=== PATIENT | female | born 1995 | race Hispanic/Latino ===

== ENCOUNTER 2017-09-11 11:51 | Inpatient (IN) | payer SELFPAY ==
[2017-09-11] VITALS (31 sets, daily range): BP systolic 98–137; BP diastolic 59–114
[~2017-09-11] VITALS: Ht 144.8 cm; Wt 52.2 kg
[2017-09-11] MEDS ORDERED: SODIUM CHLORIDE 0.9% 1000ML 1,000 ML IV STA (11:56)
[2017-09-11] MEDS ORDERED: SODIUM BICARBONATE 8.4% SYRING 100 ML ONE ×2 (12:19→22:06)
[2017-09-11] MEDS ORDERED: SODIUM BICARBONATE 8.4% INJ 50 ML SYR IV STA ×2 (12:19→14:18)
[2017-09-11 12:20] LABS: BASOPHILS # (AUTO) 0.1 (0.0-0.1); BASOPHILS % 0.2 % (0.0-1.0); EOSINOPHILS # (AUTO) 0.1 (0.0-0.4); EOSINOPHILS % 0.1 % (0.0-6.0); HEMATOCRIT 43.7 % (34.2-44.1); HEMOGLOBIN 14.5 g/dL (12.0-16.0); LYMPHOCYTES # (AUTO) 3.5 (1.0-3.2); LYMPHOCYTES % 8.4 % (18.0-39.1); MEAN CORPUSCULAR HEMOGLOBIN 30.9 pg (28-32); MEAN CORPUSCULAR HGB CONC 33.2 g/dL (31-35); MONOCYTES # (AUTO) 2.3 (0.2-0.8); MONOCYTES % 5.6 % (4.4-11.3); NEUTROPHILS # (AUTO) 33.3 (2.1-6.9); NEUTROPHILS % 79.9 % (38.7-80.0); PLATELET COUNT 415 x10e3/uL (140-360); RED CELL DISTRIBUTION WIDTH 14.4 % (11.7-14.4)
[2017-09-11 12:23] LABS: ABG HCO3 2 mmol/L (23-28); ABG PCO2 10 mmHg (41-51); ABG PH 6.84 (7.31-7.41); ABG PO2 162 mmHg (80-105)
[2017-09-11 12:31] LABS: INR 1.25; PARTIAL THROMBOPLASTIN TIME 36.5 seconds (23.8-35.5); PROTHROMBIN TIME 14.8 seconds (11.9-14.5)
[2017-09-11 12:42] LABS: ALANINE AMINOTRANSFERASE 24 IU/L (0-55); ALBUMIN/GLOBULIN RATIO 0.6 (0.8-2.0); ALKALINE PHOSPHATASE 246 IU/L (40-150); BLOOD UREA NITROGEN 19 mg/dL (7-26); BUN/CREATININE RATIO 11 (6-25); CALCIUM 10.2 mg/dL (8.4-10.2); CHLORIDE 104 mmol/L (98-107); CREATININE, SERUM 1.66 mg/dL (0.57-1.11); EST GLOMERULAR FILTRATION RATE 39 ML/MIN (60-); POTASSIUM 3.9 mmol/L (3.5-5.1); SODIUM 131 mmol/L (136-145)
[2017-09-11 12:45] LABS: ANION GAP 25.9 mmol/L (8-16)
[2017-09-11 12:46] LABS: CARBON DIOXIDE < 5 mmol/L (22-29); GLUCOSE 715 mg/dL (74-118)
[2017-09-11 12:51] LABS: BAND NEUTROPHILS % (MANUAL) 2 %; LYMPHOCYTES % (MANUAL) 6 % (19-48); MONOCYTES % (MANUAL) 5 % (3.4-9.0); NEUTROPHILS % (MANUAL) 83 % (40-74); NUCLEATED RED BLOOD CELLS 2; PROMYELOCYTES % (MANUAL) 2 % (0-0)
[2017-09-11 12:52] LABS: ANISOCYTOSIS SLIG; BURR CELLS SLIGHT; POIKILOCYTOSIS SLIGHT; POLYCHROMASIA FEW; TARGET CELLS FEW
[2017-09-11 12:53] LABS: PLATELET ESTIMATE ADEQUATE; PLATELET MORPHOLOGY COMMENT NORMAL; RBC MORPHOLOGY COMMENT NORMAL
[2017-09-11] MEDS ORDERED: SODIUM CHLORIDE 0.9% 1000ML 1,000 ML ONE (12:55)
[2017-09-11 13:01] LABS: CLARITY,URINE HAZY (CLEAR); COLOR,URINE COLORLESS (YELLOW); KETONES,URINE 2+ (NEGATIVE); LEUKOCYTE ESTERASE ,URINE NEGATIVE (NEGATIVE); NITRITE,URINE NEGATIVE (NEGATIVE); PROTEIN,URINE DIPSTICK 2+ (NEGATIVE); URINE UROBILINOGEN 0.2 mg/dL (0.2 - 1)
[2017-09-11 13:02] LABS: CREATINE KINASE 40 IU/L (29-168)
[2017-09-11 13:02] LABS: BILIRUBIN,URINE NEGATIVE (NEGATIVE)
[2017-09-11 13:03] LABS: AMPHETAMINES SCREEN,URINE NEGATIVE (NEGATIVE); BENZODIAZEPINES SCREEN,URINE NEGATIVE (NEGATIVE); PHENCYCLIDINE SCREEN,URINE NEGATIVE (NEGATIVE)
[2017-09-11 13:04] LABS: PREGNANCY TEST, URINE NEGATIVE (NEGATIVE)
[2017-09-11 13:12] LABS: BACTERIA,URINE MANY /HPF; EPITHELIAL CELLS,URINE FEW /LPF; WBC,URINE (MAN) 0-5 /HPF (0-5)
[2017-09-11] MEDS ORDERED: SODIUM CHLORIDE 0.9% 1000ML 1,000 ML IV SCH ×2 (13:30→23:30)
[2017-09-11] MEDS ORDERED: INSULIN REGULAR, HUMAN 3ML VL 100 UNIT in SODIUM CHLORIDE 0.9% 100 ML 100 ML IV STA ×2 (13:53)
[2017-09-11] MEDS: CEFTRIAXONE SOD 1 GM VIAL IV SCH (14:26)
[2017-09-11] MEDS ORDERED: INSULIN REGULAR, HUMAN 100 UNIT/1 ML 3ML VIAL IV ONE (14:30)
[2017-09-11 14:50] LABS: ABG HCO3 3 mmol/L (23-28); ABG PCO2 12 mmHg (41-51); ABG PH 6.91 (7.31-7.41); ABG PO2 90 mmHg (80-105)
[2017-09-11] MEDS ORDERED: DEXTROSE 5%/0.45% SOD CHL 1,000 ML IV SCH (15:21)
[2017-09-11] MEDS: SODIUM CHLORIDE 0.9% 1000ML 1,000 ML IV SCH ×4 (15:21→23:07)
[2017-09-11] MEDS ORDERED: INSULIN REGULAR IV SCH ×2 (15:30)
[2017-09-11] MEDS ORDERED: POTASSIUM CHLORIDE 20MEQ/100ML 200 ML IV PRN (15:30)
[2017-09-11] MEDS ORDERED: MAGNESIUM SULF 1GRAM/DEXTROSE 100 ML IV PRN (15:30)
[2017-09-11] MEDS ORDERED: INSULIN DETEMIR 100 UNIT/ML PEN SQ PRN (15:30)
[2017-09-11] MEDS ORDERED: SODIUM CHLORIDE 0.9% IV SCH ×2 (15:30)
[2017-09-11] MEDS ORDERED: [UNRECOGNIZED DRUG - OTHER] IV SCH ×2 (15:30)
[2017-09-11] MEDS ORDERED: HUMAN IV SCH ×2 (15:30)
--- NOTE | 2017-09-11 16:03 | Diagnostic Imaging Report ---
Examination: Single AP view of the chest. COMPARISON: None. INDICATION: High blood sugar IMPRESSION: 1. Lines and Tubes: None 2. Mildly hypoinflated lungs. Mild increase in interstitial markings in the left hemithorax, which may be artifactual or represent unilateral interstitial edema. Recommend chest PA and lateral for further evaluation, if clinically feasible. 3. Cardiomediastinal silhouette is normal. Central pulmonary venous crowding. 4. No acute bony abnormalities. Signed by: Dr. Bob Lopez M.D. on 09/11/2017 3:59 PM
--- NOTE | 2017-09-11 16:20 | History and Physical ---
PRIMARY CARE PHYSICIAN: None. CHIEF COMPLAINT: Reduced responsiveness and confusion. HISTORY OF PRESENT ILLNESS: This is a 22-year-old woman, primary care physician none, who lost her mother about 2 to 3 years ago and has been cared for by a friend by the name of Kiara Parker, as the patient's father is not involved in her care. Now the patient is found to be less responsive and confused. Brought to the hospital and found to be in DKA. She is admitted for further evaluation and management. The visual display manager states that the patient does not take any medications. PAST MEDICAL HISTORY 1. Diabetes mellitus, type 1. 2. Hypertension. 3. Questionable cognitive deficits/mental retardation. PAST SURGICAL HISTORY: None. ALLERGIES: PER ELECTRONIC MEDICAL RECORD. FAMILY HISTORY: Unknown. SOCIAL HISTORY: The patient lives with her friend by the name of Kiara Parker, who takes care of her. The patient's mother is about 3 years ago. Her father is not involved in her care. MEDICATIONS: None. REVIEW OF SYSTEMS: Unreliable. VITAL SIGNS: Have been reviewed. PHYSICAL EXAMINATION GENERAL: A tired-appearing woman resting in bed, appearing confused. HEENT: Anicteric. CARDIOVASCULAR: Normal S1 and S2. LUNGS: She has moderate breath sounds. ABDOMEN: Soft, nondistended, mildly tender diffusely. EXTREMITIES: No edema. SKIN: Dry. PSYCHIATRIC: Flat affect. NEUROLOGIC: Awake, tired appearing, appears confused. Oriented times 2. LABS: Reviewed. MEDICATIONS: Reviewed. ASSESSMENT AND PLAN: A 22-year-old woman. 1. Diabetic ketoacidosis. She received already 2 liters of fluid. We will give her an additional 4 liters and use an insulin drip. Admit to the ICU. 2. Diabetes mellitus, type 1. Will obtain a hemoglobin A1c and lipid panel. 3. Acute delirium. Will check TSH. 4. Dehydration. Rehydrate the patient now. 5. Severe metabolic acidosis. Bicarb is less than 5. We will give bicarbonate pushes and bicarbonate in fluids and rehydrate the patient. 6. Acute kidney injury. Rehydrate and reassess. 7. Urinary tract infection. Treat with antibiotics and follow up cultures. 8. Lactic acidemia. Rehydrate and reassess. 9. Marked thrombocytosis. Could be related to urinary tract infection. However, some of it is due to dehydration. Will reassess once the patient is rehydrated. 10. Mild shortness of breath. Will obtain a chest x-ray. 11. Prophylaxis: Will use SCD and Pepcid. 12. Disposition: Monitor closely in the ICU. Critical care time more than 35 minutes. Job#: [id number]
[2017-09-11 17:29] LABS: CHOL/HDL RATIO 10.9 (3.0-3.6); CHOLESTEROL 217 MD/DL (0-199); HDL CHOLESTEROL 20 MG/DL (40-60); TRIGLYCERIDES 465 MG/DL (0-149)
[2017-09-11 17:47] LABS: BLOOD UREA NITROGEN 16 mg/dL (7-26); BUN/CREATININE RATIO 15 (6-25); CALCIUM 7.8 mg/dL (8.4-10.2); CHLORIDE 118 mmol/L (98-107); CREATININE, SERUM 1.05 mg/dL (0.57-1.11); EST GLOMERULAR FILTRATION RATE > 60 ML/MIN (60-); MAGNESIUM 1.2 MG/DL (1.3-2.1); SODIUM 142 mmol/L (136-145)
[2017-09-11 17:49] LABS: THYROID STIMULATING HORMONE 0.642 uIU/mL (0.350-4.940)
[2017-09-11 17:51] LABS: ANION GAP 21.1 mmol/L (8-16)
[2017-09-11 17:57] LABS: CARBON DIOXIDE < 5 mmol/L (22-29); GLUCOSE 433 mg/dL (74-118); POTASSIUM 2.1 mmol/L (3.5-5.1)
[2017-09-11] MEDS ORDERED: POTASSIUM CHLORIDE 20MEQ/100ML 200 ML IV ONE (18:15)
[2017-09-11] MEDS ORDERED: INSULIN REGULAR, HUMAN 100 UNITS in SODIUM CHLORIDE 0.45% 100 ML SQ PRN ×2 (18:45)
[2017-09-11] MEDS: FAMOTIDINE 20 MG/2 ML VIAL IV SCH (19:23)
[2017-09-11] MEDS ORDERED: ALPRAZOLAM 0.5 MG TAB PO PRN (21:30)
[2017-09-11] MEDS ORDERED: IBUPROFEN 200 MG TAB PO PRN (21:30)
[2017-09-11 22:28] LABS: ALANINE AMINOTRANSFERASE 18 IU/L (0-55); ALBUMIN 2.3 g/dL (3.5-5.0); ALBUMIN/GLOBULIN RATIO 0.6 (0.8-2.0); ALKALINE PHOSPHATASE 169 IU/L (40-150); ANION GAP 21.2 mmol/L (8-16); BLOOD UREA NITROGEN 16 mg/dL (7-26); BUN/CREATININE RATIO 15 (6-25); CALCIUM 7.9 mg/dL (8.4-10.2); CHLORIDE 120 mmol/L (98-107); CREATININE, SERUM 1.04 mg/dL (0.57-1.11); EST GLOMERULAR FILTRATION RATE > 60 ML/MIN (60-); GLUCOSE 304 mg/dL (74-118); PHOSPHORUS 0.9 MG/DL (2.3-4.7); SODIUM 145 mmol/L (136-145)
[2017-09-11 22:30] LABS: CARBON DIOXIDE 6 mmol/L (22-29); POTASSIUM 2.2 mmol/L (3.5-5.1)
[2017-09-11] MEDS: SODIUM CHLORIDE 0.45% 1,000 ML IV SCH (22:30)
[2017-09-11] MEDS ORDERED: MAGNESIUM SULF 1GRAM/DEXTROSE 100 ML IV ONE (22:36)
[2017-09-11] MEDS ORDERED: POTASSIUM CHLORIDE 20MEQ/100ML 200 ML ONE (22:46)
[2017-09-12] VITALS (67 sets, daily range): BP systolic 96–154; BP diastolic 55–123
[2017-09-12] MEDS ORDERED: SODIUM BICARBONATE 8.4% SYRING 100 ML ONE (02:06)
[2017-09-12] MEDS: SODIUM CHLORIDE 0.45% 1,000 ML IV SCH ×2 (03:51→10:50)
[2017-09-12 03:58] LABS: BASOPHILS # (AUTO) 0.1 (0.0-0.1); BASOPHILS % 0.2 % (0.0-1.0); HEMATOCRIT 34.6 % (34.2-44.1); HEMOGLOBIN 12.2 g/dL (12.0-16.0); LYMPHOCYTES # (AUTO) 1.6 (1.0-3.2); LYMPHOCYTES % 7.5 % (18.0-39.1); MEAN CORPUSCULAR HEMOGLOBIN 30.1 pg (28-32); MEAN CORPUSCULAR HGB CONC 35.3 g/dL (31-35); MEAN CORPUSCULAR VOLUME 85.4 fL (81-99); MONOCYTES # (AUTO) 1.8 (0.2-0.8); MONOCYTES % 8.7 % (4.4-11.3); NEUTROPHILS # (AUTO) 16.2 (2.1-6.9); PLATELET COUNT 302 x10e3/uL (140-360); RED BLOOD COUNT 4.05 x10e6/uL (3.6-5.1); RED CELL DISTRIBUTION WIDTH 13.2 % (11.7-14.4)
[2017-09-12 04:08] LABS: INR 1.02; PROTHROMBIN TIME 12.6 seconds (11.9-14.5)
[2017-09-12 04:15] LABS: ANION GAP 16.8 mmol/L (8-16); BLOOD UREA NITROGEN 15 mg/dL (7-26); BUN/CREATININE RATIO 14 (6-25); CALCIUM 7.9 mg/dL (8.4-10.2); CARBON DIOXIDE 12 mmol/L (22-29); CHLORIDE 122 mmol/L (98-107); EST GLOMERULAR FILTRATION RATE > 60 ML/MIN (60-); GLUCOSE 149 mg/dL (74-118); MAGNESIUM 1.5 MG/DL (1.3-2.1); SODIUM 148 mmol/L (136-145)
[2017-09-12 04:17] LABS: POTASSIUM 2.8 mmol/L (3.5-5.1)
[2017-09-12 04:21] LABS: BAND NEUTROPHILS % (MANUAL) 3 %; LYMPHOCYTES % (MANUAL) 9 % (19-48); MONOCYTES % (MANUAL) 7 % (3.4-9.0); NEUTROPHILS % (MANUAL) 81 % (40-74); PLATELET MORPHOLOGY COMMENT NORMAL; RBC MORPHOLOGY COMMENT NORMAL
[2017-09-12 04:22] LABS: PLATELET ESTIMATE ADEQUATE
[2017-09-12] MEDS ORDERED: MAGNESIUM SULF 1GRAM/DEXTROSE 100 ML IV ONE (04:30)
[2017-09-12] MEDS ORDERED: POTASSIUM CHLORIDE 20MEQ/100ML 200 ML IV ONE ×3 (04:30→17:30)
[2017-09-12] MEDS ORDERED: METOPROLOL TARTRATE INJ 1 MG/ML VIAL ONE (04:50)
[2017-09-12] MEDS: METOPROLOL TARTRATE INJ 1 MG/ML VIAL IV PRN (05:01)
[2017-09-12] MEDS: METOPROLOL TARTRATE 25 MG TAB PO SCH ×3 (05:40→22:19)
[2017-09-12] MEDS ORDERED: POTASSIUM CHLORIDE 20MEQ/100ML 100 ML IV ONE (06:30)
[2017-09-12 08:12] LABS: BLOOD UREA NITROGEN 15 mg/dL (7-26); BUN/CREATININE RATIO 14 (6-25); CALCIUM 7.7 mg/dL (8.4-10.2); CARBON DIOXIDE 14 mmol/L (22-29); CHLORIDE 125 mmol/L (98-107); CREATININE, SERUM 1.04 mg/dL (0.57-1.11); EST GLOMERULAR FILTRATION RATE > 60 ML/MIN (60-); GLUCOSE 127 mg/dL (74-118); MAGNESIUM 1.7 MG/DL (1.3-2.1); SODIUM 152 mmol/L (136-145)
[2017-09-12] MEDS ORDERED: [UNRECOGNIZED DRUG - OTHER] IV SCH ×2 (08:22)
[2017-09-12] MEDS ORDERED: SODIUM CHLORIDE 0.45% IV SCH ×2 (08:22)
[2017-09-12] MEDS ORDERED: INSULIN REGULAR IV SCH ×2 (08:22)
[2017-09-12] MEDS ORDERED: HUMAN IV SCH ×2 (08:22)
[2017-09-12] MEDS ORDERED: DEXTROSE 50% SYRINGE 50 ML IV PRN ×2 (08:30→14:15)
[2017-09-12] MEDS: INSULIN REGULAR, HUMAN 3ML VL 100 UNIT in SODIUM CHLORIDE 0.45% 100 ML 99 ML IV SCH ×4 (08:45→16:15)
[2017-09-12] MEDS: FAMOTIDINE 20 MG/2 ML VIAL IV SCH ×2 (09:00→16:46)
[2017-09-12 12:01] LABS: ANION GAP 15.7 mmol/L (8-16); BLOOD UREA NITROGEN 14 mg/dL (7-26); BUN/CREATININE RATIO 13 (6-25); CALCIUM 7.8 mg/dL (8.4-10.2); CARBON DIOXIDE 18 mmol/L (22-29); CHLORIDE 122 mmol/L (98-107); CREATININE, SERUM 1.12 mg/dL (0.57-1.11); EST GLOMERULAR FILTRATION RATE > 60 ML/MIN (60-); GLUCOSE 164 mg/dL (74-118); MAGNESIUM 1.7 MG/DL (1.3-2.1); SODIUM 153 mmol/L (136-145)
[2017-09-12 12:04] LABS: POTASSIUM 2.7 mmol/L (3.5-5.1)
[2017-09-12] MEDS ORDERED: POTASSIUM CHLORIDE 20MEQ/100ML 200 ML ONE (12:17)
[2017-09-12] MEDS ORDERED: SODIUM BICARBONATE IV SCH (13:00)
[2017-09-12] MEDS ORDERED: SOD CHL IV SCH (13:00)
[2017-09-12] MEDS ORDERED: DEXTROSE IV SCH (13:00)
--- NOTE | 2017-09-12 13:12 | Progress Note ---
DATE: September 12, 2017 TIME: 12:30 p.m. OVERNIGHT: No acute events. REVIEW OF SYSTEMS: Patient only with complaint of fatigue. PHYSICAL EXAMINATION VITAL SIGNS: T 99.5 axillary, P 116, respirations 28, BP 127/91, pulse oximetry on room air 100%. Intermittent nasal cannula at 4 L per minute per nursing staff. GENERAL: This is a very tired-appearing young lady resting in bed. Somewhat somnolent and difficult to arouse. HEENT: Normocephalic without sinus tenderness. Oral mucosa somewhat dry. Nares patent. CARDIAC: Tachycardia with S1 and S2 auscultated without clicks, murmurs or rubs. LUNGS: Bilateral breath sounds clear to auscultation in all solitario with poor excursion. ABDOMEN: Soft. Slightly distended with mild tenderness diffuse upon light palpation. EXTREMITIES: No edema. Positive DP and PT pulses bilaterally. SKIN: Warm and dry. PSYCHIATRIC: Flat affect. NEUROLOGIC: Awake upon verbal stimuli. Very tired-appearing and somewhat confused with questions. Oriented to person and place. LABS: A.m. lab values this morning found the patient with a sodium of 153, potassium 2.7, chloride 122, CO2 18, gap is closed at 15.7, BUN 14, and creatinine is 1.12. Estimated GFR is greater than 16. Fingerstick glucose q.2 h. is 164. Prior calcium at 7.8. Counts significantly declined at 21 this morning down from 41.7 upon admission. Platelet count is normal at 302,000. MEDICATIONS: Currently, the patient is gettin. Pepcid 20 mg p.o. b.i.d. 2. Metoprolol 25 mg q.8 h. p.o. 3. Metoprolol 5 mg q.4 h. p.r.n. for elevated heart rate. 4. Potassium chloride p.r.n. IV for potassium less than 3. However, we are replacing it at this time for the above value. 5. P.r.n. mag sulfate IV. 6. Xanax 0.5 mg q.8 h. p.r.n. 7. Ibuprofen 800 mg q.8 h. p.r.n. 8. Q.24 h. Rocephin IV. 9. Regular insulin drip per nephrology. ASSESSMENT AND PLAN: This is a 22-year-old female with: 1. Diabetic ketoacidosis: Patient had 6 L fluids per IV. Continues to get low-dose insulin drip per nephrology recommendations. At this time, gap is closed. However, the CO2 is still elevated. We will continue with the bicarb drip. 2. Diabetes mellitus, type 1: Hemoglobin A1c found upon admission to be greater than 13 with significantly elevated triglyceride and cholesterol levels. Discussed with art gallery internship at bedside for outpatient needs for type 1 diabetes management. 3. Acute delirium: TSH within normal limits at 0.642. 4. Dehydration: Continue to rehydrate. 5. Severe metabolic acidosis: Bicarb is improved. Due to IV pushes, defer to nephrology for management. 6. Acute kidney injury, resolving. 7. Urinary tract infection: Continue with intravenous Rocephin. Preliminary urine culture with no growth. White count diminishing. 8. Lactic acidemia: Continue to rehydrate and reassess with q.4 h. BMP. 9. Non-marked thrombocytosis as above: Continue to monitor in the a.m. 10. Mild shortness of breath: Chest x-ray is negative. Will continue to monitor. Follow up chest x-ray PA and lateral per recommendations. 11. Prophylaxis: Sequential compression devices and Pepcid as indicated above. 12. Disposition: Continue treatment plan as above. Continue with intensive care unit monitoring. Critical care time was greater than 45 minutes. DICTATED BY ANJU RESENDIZ NP Job#: [id number] [place]
[2017-09-12] MEDS ORDERED: INSULIN REGULAR, HUMAN 3ML VL 100 UNIT in SODIUM CHLORIDE 0.45% 100 ML 100 ML IV SCH ×2 (14:10)
[2017-09-12 14:45] LABS: ANION GAP 15.9 mmol/L (8-16); BLOOD UREA NITROGEN 13 mg/dL (7-26); BUN/CREATININE RATIO 12 (6-25); CALCIUM 7.9 mg/dL (8.4-10.2); CARBON DIOXIDE 19 mmol/L (22-29); CHLORIDE 119 mmol/L (98-107); CREATININE, SERUM 1.07 mg/dL (0.57-1.11); EST GLOMERULAR FILTRATION RATE > 60 ML/MIN (60-); GLUCOSE 133 mg/dL (74-118); SODIUM 151 mmol/L (136-145)
[2017-09-12] MEDS ORDERED: ACETAMINOPHEN 325 MG TAB PO PRN (14:45)
[2017-09-12 14:48] LABS: POTASSIUM 2.9 mmol/L (3.5-5.1)
[2017-09-12 15:03] LABS: FREE T4 (FREE THYROXINE) 1.11 ng/dL (0.9-1.8); THYROID STIMULATING HORMONE 1.378 uIU/mL (0.350-4.940)
--- NOTE | 2017-09-12 15:13 | Consultation ---
DATE OF CONSULTATION: September 12, 2017 ENDOCRINE CONSULTATION Thank you very much for referring this patient. This is a 22-year-old lady who is a known case of type 1 diabetes mellitus. She stopped taking insulin several months back. She came to the hospital with history of nausea, vomiting and altered mental status. On further evaluation, her blood sugar was found to be 715. Anion gap was 25.9 and the potassium was low. Her hemoglobin A1c is 13.6. PHYSICAL EXAMINATION GENERAL: Today, the patient is alert, awake and slightly sleepy. VITALS: Her heart rate is around 100, blood pressure 120/80 mmHg. HEENT: Essentially unremarkable. Thyroid is palpable. Clinically, she is near euthyroid. CHEST: Bilateral vesicular breathing. She has mild bronchospasm. HEART: First and 2nd sounds. There is no 3rd or 4th heart sound. Ejection murmur of grade 3/6. EXTREMITIES: Patient has evidence of diabetic sensory neuropathy in both lower extremities. CLINICAL IMPRESSION 1. Diabetes mellitus, type 1, uncontrolled with complications. 2. Noncompliance about taking the medications. 3. Diabetic ketoacidosis. PLAN: At this time, to continue the insulin drip and IV fluids. Do a hemoglobin A1c repeat. Also, supplement the potassium and advance the diet slowly. Thanks for referring this patient. I will be following this patient with you. Job#: [id number] IVAN VASQUEZ
--- NOTE | 2017-09-12 15:49 | Diagnostic Imaging Report ---
Two view chest x-ray INDICATION: Prominent interstitial markings on chest x-ray COMPARISON: Chest x-ray 09/11/2017. FINDINGS: The cardiomediastinal silhouette is normal. There is no evidence of hilar lymphadenopathy. The pulmonary vascular markings are normal. Haziness of the left lung base is suggestive of developing infiltrate or superimposed breast tissue. No conclusive evidence of infiltrate on lateral image. No large effusions. No pneumothorax. Evaluation of the osseous structures demonstrates no focal abnormality. IMPRESSION: Hazy opacity in the base of the left lung could represent developing infiltrate or superimposed breast tissue. Please correlate for signs/symptoms of infection. Signed by: Dr. Betty Bedolla MD on 09/12/2017 3:46 PM
[2017-09-12] MEDS: POTASSIUM CHL 40 MEQ in DEXTROSE 5%/0.45% SOD CHL 1,000 ML IV SCH ×2 (16:34→23:41)
[2017-09-12] MEDS: CEFTRIAXONE SOD 1 GM VIAL IV SCH (16:45)
[2017-09-12 22:32] LABS: ANION GAP 15.5 mmol/L (8-16); BLOOD UREA NITROGEN 10 mg/dL (7-26); BUN/CREATININE RATIO 10 (6-25); CALCIUM 7.9 mg/dL (8.4-10.2); CARBON DIOXIDE 19 mmol/L (22-29); CHLORIDE 120 mmol/L (98-107); CREATININE, SERUM 0.99 mg/dL (0.57-1.11); EST GLOMERULAR FILTRATION RATE > 60 ML/MIN (60-); GLUCOSE 168 mg/dL (74-118); POTASSIUM 3.5 mmol/L (3.5-5.1); SODIUM 151 mmol/L (136-145)
[2017-09-12] MEDS ORDERED: BENZONATATE 100 MG CAP PO PRN (22:45)
[2017-09-12] MEDS ORDERED: GUAIFENESIN/DEXTROMETHORPHAN LIQD 5 ML UDC PO PRN (22:45)
[2017-09-13] VITALS (41 sets, daily range): BP systolic 113–145; BP diastolic 82–118
[2017-09-13 02:24] LABS: ANION GAP 13.3 mmol/L (8-16); BLOOD UREA NITROGEN 8 mg/dL (7-26); BUN/CREATININE RATIO 8 (6-25); CARBON DIOXIDE 22 mmol/L (22-29); CHLORIDE 118 mmol/L (98-107); CREATININE, SERUM 0.95 mg/dL (0.57-1.11); EST GLOMERULAR FILTRATION RATE > 60 ML/MIN (60-); GLUCOSE 212 mg/dL (74-118); POTASSIUM 3.3 mmol/L (3.5-5.1); SODIUM 150 mmol/L (136-145)
[2017-09-13] MEDS ORDERED: POTASSIUM CHLORIDE 20MEQ/100ML 200 ML IV ONE (03:00)
[2017-09-13] MEDS: METOPROLOL TARTRATE INJ 1 MG/ML VIAL IV PRN ×2 (03:42→17:07)
[2017-09-13] MEDS: METOPROLOL TARTRATE 25 MG TAB PO SCH ×3 (05:28→22:38)
[2017-09-13 06:15] LABS: BASOPHILS # (AUTO) 0.1 (0.0-0.1); BASOPHILS % 0.7 % (0.0-1.0); EOSINOPHILS # (AUTO) 0.1 (0.0-0.4); EOSINOPHILS % 0.7 % (0.0-6.0); HEMATOCRIT 27.8 % (34.2-44.1); HEMOGLOBIN 10.1 g/dL (12.0-16.0); LYMPHOCYTES # (AUTO) 1.9 (1.0-3.2); LYMPHOCYTES % 13.1 % (18.0-39.1); MEAN CORPUSCULAR HEMOGLOBIN 29.7 pg (28-32); MEAN CORPUSCULAR HGB CONC 36.3 g/dL (31-35); MEAN CORPUSCULAR VOLUME 81.8 fL (81-99); MONOCYTES # (AUTO) 2.1 (0.2-0.8); MONOCYTES % 14.5 % (4.4-11.3); NEUTROPHILS # (AUTO) 9.3 (2.1-6.9); NEUTROPHILS % 65.7 % (38.7-80.0); PLATELET COUNT 255 x10e3/uL (140-360); RED CELL DISTRIBUTION WIDTH 12.4 % (11.7-14.4)
[2017-09-13 06:39] LABS: ANION GAP 12.7 mmol/L (8-16); BLOOD UREA NITROGEN 7 mg/dL (7-26); BUN/CREATININE RATIO 9 (6-25); CALCIUM 7.8 mg/dL (8.4-10.2); CARBON DIOXIDE 21 mmol/L (22-29); CHLORIDE 119 mmol/L (98-107); CREATININE, SERUM 0.81 mg/dL (0.57-1.11); EST GLOMERULAR FILTRATION RATE > 60 ML/MIN (60-); GLUCOSE 205 mg/dL (74-118); POTASSIUM 3.7 mmol/L (3.5-5.1); SODIUM 149 mmol/L (136-145)
[2017-09-13 07:12] LABS: MAGNESIUM 1.5 MG/DL (1.3-2.1)
[2017-09-13 07:15] LABS: PHOSPHORUS < 0.7 MG/DL (2.3-4.7)
[2017-09-13] MEDS ORDERED: POTASSIUM PHOSPHATE 20 MM in SODIUM CHLORIDE 0.9% 250ML 250 ML IV ONE (08:00)
[2017-09-13 08:03] LABS: BAND NEUTROPHILS % (MANUAL) 3 %; EOSINOPHILS % (MANUAL) 2 % (0-7); HYPOCHROMASIA SLIGHT; LYMPHOCYTES % (MANUAL) 18 % (19-48); MONOCYTES % (MANUAL) 13 % (3.4-9.0); NEUTROPHILS % (MANUAL) 64 % (40-74); PLATELET ESTIMATE ADEQUATE
--- NOTE | 2017-09-13 08:07 | Progress Note ---
DATE: September 13, 2017 TIME: 7:33 a.m. OVERNIGHT: Remains on insulin drip. REVIEW OF SYSTEMS: Unobtainable. VITAL SIGNS: Reviewed. T-max is 100.4. PHYSICAL EXAMINATION GENERAL: A tired-appearing woman resting in bed. HEENT: Atraumatic. CARDIOVASCULAR: Normal S1 and S2. LUNGS: Moderate breath sounds. ABDOMEN: Soft. Nontender and nondistended. EXTREMITIES: No edema. SKIN: Dry. PSYCHIATRIC: Flat affect. NEUROLOGIC: Moves all extremities. LABS: Reviewed. MEDICATIONS: Reviewed. ASSESSMENT AND PLAN: A 22-year-old woman. 1. Diabetic ketoacidosis. 2. Diabetes mellitus, type 1. 3. Acute delirium. 4. Dehydration. 5. Severe metabolic acidosis. 6. Acute kidney injury. 7. Urinary tract infection. 8. Lactic acidemia. 9. Hypernatremia. 10. Hypertriglyceridemia. 11. Anxiety disorder. PLAN 1. Continue insulin drip per Dr. Cooper's protocol. 2. Follow up labs. 3. Leukocytosis, improving. 4. Hypernatremia, improving. 5. Hemoglobin A1c 13.5, triglycerides 465, LDL not calculated. 6. Add fibrate to regimen for hypertriglyceridemia. 7. All cultures remain negative. 8. Continue alprazolam for anxiety. 9. Metabolic acidosis, resolving. 10. Continue care in the ICU. Critical care time more than 35 minutes. Job#: [id number]
[2017-09-13 08:08] LABS: ANISOCYTOSIS SLIGHT; PLATELET MORPHOLOGY COMMENT NORMAL; RBC MORPHOLOGY COMMENT NORMAL
[2017-09-13] MEDS: POTASSIUM CHL 40 MEQ in DEXTROSE 5%/0.45% SOD CHL 1,000 ML IV SCH ×2 (08:36→16:51)
[2017-09-13] MEDS: FENOFIBRATE 145 MG TAB PO SCH (13:52)
[2017-09-13] MEDS: FAMOTIDINE 20 MG/2 ML VIAL IV SCH ×2 (13:52→17:00)
[2017-09-13] MEDS: CEFTRIAXONE SOD 1 GM VIAL IV SCH (13:54)
[2017-09-13 14:13] LABS: ANION GAP 11.9 mmol/L (8-16); BLOOD UREA NITROGEN 5 mg/dL (7-26); BUN/CREATININE RATIO 6 (6-25); CARBON DIOXIDE 24 mmol/L (22-29); CHLORIDE 115 mmol/L (98-107); CREATININE, SERUM 0.78 mg/dL (0.57-1.11); EST GLOMERULAR FILTRATION RATE > 60 ML/MIN (60-); GLUCOSE 209 mg/dL (74-118); POTASSIUM 3.9 mmol/L (3.5-5.1); SODIUM 147 mmol/L (136-145)
[2017-09-13 18:46] LABS: ANION GAP 13.3 mmol/L (8-16); BLOOD UREA NITROGEN 4 mg/dL (7-26); BUN/CREATININE RATIO 6 (6-25); CALCIUM 7.7 mg/dL (8.4-10.2); CARBON DIOXIDE 22 mmol/L (22-29); CHLORIDE 114 mmol/L (98-107); EST GLOMERULAR FILTRATION RATE > 60 ML/MIN (60-); GLUCOSE 186 mg/dL (74-118); POTASSIUM 4.3 mmol/L (3.5-5.1); SODIUM 145 mmol/L (136-145)
[2017-09-13] MEDS: INSULIN REGULAR, HUMAN 3ML VL 100 UNIT in SODIUM CHLORIDE 0.45% 100 ML 99 ML IV SCH ×2 (20:58)
[2017-09-14] VITALS (34 sets, daily range): BP systolic 107–139; BP diastolic 78–110
[2017-09-14] MEDS: POTASSIUM CHL 40 MEQ in DEXTROSE 5%/0.45% SOD CHL 1,000 ML IV SCH ×3 (00:46→17:13)
[2017-09-14 06:04] LABS: BASOPHILS # (AUTO) 0.1 (0.0-0.1); BASOPHILS % 0.7 % (0.0-1.0); EOSINOPHILS # (AUTO) 0.2 (0.0-0.4); EOSINOPHILS % 1.6 % (0.0-6.0); HEMATOCRIT 28.8 % (34.2-44.1); HEMOGLOBIN 10.2 g/dL (12.0-16.0); LYMPHOCYTES # (AUTO) 2.9 (1.0-3.2); MEAN CORPUSCULAR HEMOGLOBIN 29.9 pg (28-32); MEAN CORPUSCULAR HGB CONC 35.4 g/dL (31-35); MEAN CORPUSCULAR VOLUME 84.5 fL (81-99); MONOCYTES # (AUTO) 1.8 (0.2-0.8); MONOCYTES % 16.3 % (4.4-11.3); NEUTROPHILS # (AUTO) 5.5 (2.1-6.9); PLATELET COUNT 218 x10e3/uL (140-360); RED BLOOD COUNT 3.41 x10e6/uL (3.6-5.1); RED CELL DISTRIBUTION WIDTH 13.4 % (11.7-14.4)
[2017-09-14 06:39] LABS: ANION GAP 12.7 mmol/L (8-16); BLOOD UREA NITROGEN < 5 mg/dL (7-26); CALCIUM 7.1 mg/dL (8.4-10.2); CARBON DIOXIDE 22 mmol/L (22-29); CHLORIDE 111 mmol/L (98-107); CREATININE, SERUM 0.61 mg/dL (0.57-1.11); EST GLOMERULAR FILTRATION RATE > 60 ML/MIN (60-); GLUCOSE 198 mg/dL (74-118); POTASSIUM 3.7 mmol/L (3.5-5.1); SODIUM 142 mmol/L (136-145)
[2017-09-14 06:48] LABS: BUN/CREATININE RATIO 8 (6-25)
[2017-09-14] MEDS: METOPROLOL TARTRATE 25 MG TAB PO SCH ×3 (07:35→21:16)
[2017-09-14 07:36] LABS: ANISOCYTOSIS SLIGHT; HYPOCHROMASIA SLIGHT; LYMPHOCYTES % (MANUAL) 27 % (19-48); MONOCYTES % (MANUAL) 16 % (3.4-9.0); NEUTROPHILS % (MANUAL) 56 % (40-74); PLATELET ESTIMATE ADEQUATE; POIKILOCYTOSIS SLIGHT
[2017-09-14 07:37] LABS: PLATELET MORPHOLOGY COMMENT NORMAL; RBC MORPHOLOGY COMMENT NORMAL
[2017-09-14] MEDS ORDERED: DEXTROSE 50% SYRINGE 50 ML IV PRN (09:00)
[2017-09-14] MEDS: FAMOTIDINE 20 MG/2 ML VIAL IV SCH ×2 (09:03→17:19)
[2017-09-14] MEDS: FENOFIBRATE 145 MG TAB PO SCH (09:03)
[2017-09-14] MEDS: INSULIN DETEMIR 100 UNIT/ML PEN SQ SCH ×2 (10:50→17:33)
[2017-09-14] MEDS ORDERED: INSULIN LISPRO 100 UNIT/1 ML 3ML VIAL SQ SCH ×2 (11:30→16:30)
[2017-09-14] MEDS: CEFTRIAXONE SOD 1 GM VIAL IV SCH (13:38)
[2017-09-14] MEDS: INSULIN LISPRO 100 UNIT/1 ML 3ML VIAL SQ SCH ×3 (17:32→20:26)
[2017-09-15 00:09] VITALS: BP 114/85
[2017-09-15] MEDS: POTASSIUM CHL 40 MEQ in DEXTROSE 5%/0.45% SOD CHL 1,000 ML IV SCH ×2 (02:33→08:35)
[2017-09-15 04:14] VITALS: BP 107/78
[2017-09-15] MEDS: METOPROLOL TARTRATE 25 MG TAB PO SCH (05:42)
[2017-09-15] MEDS ORDERED: ALPRAZOLAM0.5 MG PO (06:12)
[2017-09-15] MEDS ORDERED: TESSALON PERLE100 MG PO (06:13)
[2017-09-15] MEDS ORDERED: PEPCID20 MG PO (06:13)
[2017-09-15] MEDS ORDERED: Insulin Detemir SQ (06:13)
[2017-09-15] MEDS ORDERED: FENOFIBRATE145 MG PO (06:13)
[2017-09-15] MEDS ORDERED: Insulin Lispro SQ (06:13)
[2017-09-15] MEDS ORDERED: LOPRESSOR25 MG PO (06:13)
[2017-09-15] MEDS ORDERED: KEFLEX500 MG PO (06:13)
--- NOTE | 2017-09-15 06:40 | Discharge Summary ---
PRINCIPAL DIAGNOSES 1. Diabetic ketoacidosis. 2. Diabetes mellitus, type 1. 3. Acute delirium. 4. Anxiety disorder. 5. Dehydration. 6. Severe metabolic acidosis. 7. Culture-negative sepsis. 8. Acute kidney injury. 9. Urinary tract infection. 10. Lactic acidemia. 11. Hypernatremia. 12. Hypertriglyceridemia. SECONDARY DIAGNOSIS: Diabetes mellitus, type 1. CHIEF COMPLAINT: Confusion. HISTORY OF PRESENT ILLNESS: This is a 22-year-old woman with confusion. Refer to the H and P for further details. HOSPITAL COURSE: The patient was found to be in DKA with acute delirium, metabolic acidosis, dehydration, and acute kidney injury. Also, had urinary tract infection. She was treated with antibiotics, insulin regimen and IV fluids, and improved in the ICU. Transitioned on the floor. Found to have culture-negative sepsis. She continues to improve. Fevers have resolved. Tachycardia is improving. The patient is doing better and currently appropriate for discharge for followup. DISCHARGE MEDICATIONS: Per electronic medical record. FOLLOWUP 1. With me in 1 week. 2. Follow up with Dr. Cooper in 1 week. CONDITION ON DISCHARGE: Stable and improving. DISCHARGE LOCATION: Home. SANDRA CLAYTON MD Job#: [id number] [place]
[2017-09-15] MEDS ORDERED: INSULIN LISPRO 100 UNIT/1 ML 3ML VIAL SQ SCH ×2 (07:30→16:30)
[2017-09-15 08:00] VITALS: BP 118/80
[2017-09-15] MEDS: INSULIN LISPRO 100 UNIT/1 ML 3ML VIAL SQ SCH ×3 (08:04→12:00)
[2017-09-15] MEDS: FAMOTIDINE 20 MG/2 ML VIAL IV SCH (10:01)
[2017-09-15] MEDS: FENOFIBRATE 145 MG TAB PO SCH (10:01)
[2017-09-15] MEDS: INSULIN DETEMIR 100 UNIT/ML PEN SQ SCH (10:05)
--- NOTE | 2017-09-15 10:39 | Progress Note ---
DATE: September 14, 2017 TIME: 7 a.m. OVERNIGHT: No events. REVIEW OF SYSTEMS: Denies any chest pain. PHYSICAL EXAMINATION VITAL SIGNS: Reviewed. GENERAL: A tired-appearing woman resting in bed. HEENT: Anicteric. CARDIOVASCULAR: Normal S1 and S2. LUNGS: Moderate breath sounds. ABDOMEN: Soft, nontender and nondistended. EXTREMITIES: No edema. SKIN: Dry. PSYCHIATRIC: Flat affect. LABS: Reviewed. MEDICATIONS: Reviewed. ASSESSMENT: A 22-year-old woman with: 1. Diabetic ketoacidosis. 2. Diabetes mellitus, type 1. 3. Acute delirium. 4. Dehydration. 5. Severe metabolic acidosis. 6. Acute kidney injury. 7. Urinary tract infection. 8. Lactic acidosis. 9. Culture-negative sepsis. 10. Hypernatremia. 11. Hypertriglyceridemia. 12. Anxiety disorder. PLAN 1. Continue antibiotics. 2. Continue insulin regimen. 3. Hemoglobin A1c 13.5, triglycerides 465 and LDL not calculated. 4. All cultures remain negative. 5. Continue alprazolam for anxiety. 6. Discharge planning. Job#: [id number] IVAN
[2017-09-15 11:59] VITALS: BP 120/86
[2017-09-15] MEDS: CEFTRIAXONE SOD 1 GM VIAL IV SCH (14:25)
[2017-09-15] MEDS ORDERED: HUMULIN R100 UNIT/2 SQ (15:12)
[2017-09-15] MEDS ORDERED: NOVOLIN N100 UNIT/1 SC (15:13)
[2017-09-15] MEDS ORDERED: NOVOLIN N100 UNIT/1 (15:14)
[2017-09-15] MEDS ORDERED: FAMOTIDINE 20 MG TAB PO SCH (16:30)
[2017-09-15] MEDS ORDERED: INSULIN DETEMIR 100 UNIT/ML PEN SQ SCH (21:00)
== END 2017-09-15 16:02 | disposition home or self-care (01) | DRG 871 ==
LOC: ER 11:51 → ERHOLD 15:51 → ICU 16:22 → IMCU 09-14 15:59
PROVIDERS: ADMIT Internal Medicine; ATTEND Internal Medicine
DX: A41.9 Sepsis, unspecified organism (principal); E10.10 Type 1 diabetes mellitus with ketoacidosis without coma; N39.0 Urinary tract infection, site not specified; F05 Delirium due to known physiological condition; N17.9 Acute kidney failure, unspecified; E87.0 Hyperosmolality and hypernatremia; E87.2 Acidosis; Z79.4 Long term (current) use of insulin; Z91.14 Patient's other noncompliance with medication regimen; E86.0 Dehydration; E10.42 Type 1 diabetes mellitus with diabetic polyneuropathy; F41.9 Anxiety disorder, unspecified; E78.1 Pure hyperglyceridemia; Z91.041 Radiographic dye allergy status; Z91.013 Allergy to seafood; D47.3 Essential (hemorrhagic) thrombocythemia
CPT/HCPCS: 36415; 36600; 51700; 71045; 71046; 80048; 80053; 80061; 80307; 81001; 81025; 82550; 82553; 82805; 82948; 83036; 83605; 83735; 84100; 84439; 84443; 84484; 85025; 85610; 85730; 87040; 87086; 93005; 96361; 96366; 96372; 99284; J0696; J3475; J3480; J7030; J7050

== ENCOUNTER 2017-09-26 16:40 | Inpatient (IN) | payer SELFPAY ==
[~2017-09-26] VITALS: Ht 144.8 cm; Wt 47.3 kg
[~2017-09-26 16:40] MED LIST: ALPRAZOLAM0.5 MG PO; FENOFIBRATE145 MG PO; HUMULIN R100 UNIT/2 SQ; Insulin Detemir SQ; Insulin Lispro SQ; KEFLEX500 MG PO; LOPRESSOR25 MG PO; NOVOLIN N100 UNIT/1; NOVOLIN N100 UNIT/1 SC; PEPCID20 MG PO; TESSALON PERLE100 MG PO
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
--- OUTSIDE RECORDS SUMMARY | 2017-09-26 16:42 | XMS REPORT ---
Author [facility] Address Unknown Phone Unavailable Care Team Providers Care Registered Dental Hygienist Name Role Phone SANDRA CLAYTON Unavailable Unavailable Problems This patient has no known problems. Allergies, Adverse Reactions, Alerts This patient has no known allergies or adverse reactions. Medications This patient has no known medications. Results Test Description Test Time Test Comments Text Results Atomic Results Result Comments CHEST 2 VIEWS [place] [address] Patient Name: MARCIE MORENO MR #: [id number] : 1995 Age/Sex: 22/F Req #: [id number] Adm Physician: SANDRA CLAYTON MD Ordered by: ANJU RESENDIZ GRINDER SET UP OPERATOR THREAD TOOL Report #: [id number] Location: ICU Room/Bed: ICU [facility] Procedure: [id number] DX/CHEST 2 VIEWS Exam Date: Exam Time: REPORT STATUS: Signed Two view chest x-ray INDICATION: Prominent interstitial markings on chest x-ray COMPARISON: Chest x-ray 09/11/2017. FINDINGS: The cardiomediastinal silhouette is normal. There is no evidence of hilar lymphadenopathy. The pulmonary vascular markings are normal. Haziness of the left lung base is suggestive of developing infiltrate or superimposed breast tissue. No conclusive evidence of infiltrate on lateral image. No large effusions. No pneumothorax. Evaluation of the osseous structures demonstrates no focal abnormality. IMPRESSION: Hazy opacity in the base of the left lung could represent developing infiltrate or superimposed breast tissue. Please correlate for signs/symptoms of infection. Signed by: Dr. Gt Bedolla MD on 09/12/2017 3:46 PM Dictated By: GT BEDOLLA MD 1546 Transcribed By : EDDIE on 09/12/17 1546 COPY TO: ANJU RESENDIZ GRINDER SET UP OPERATOR THREAD TOOL CHEST SINGLE (PORTABLE) [place] [address] Patient Name: MARCIE MORENO MR #: [id number] : 1995 Age/Sex: 22/F Req #: [id number] Adm Physician: SANDRA CLAYTON MD Ordered by: SANDRA CLAYTON MD Report #: [id number] Location: [facility] Room/Bed: [place] [address] _ Procedure: [id number] DX/CHEST SINGLE (PORTABLE) Exam Date : 09/11/17 Exam Time: 1525 REPORT STATUS: Signed Examination: Single AP view of the chest. COMPARISON: None. INDICATION: High blood sugar IMPRESSION: 1. Lines and Tubes: None 2. Mildly hypoinflated lungs. Mild increase in interstitial markings in the left hemithorax, which may be artifactual or represent unilateral interstitial edema. Recommend chest PA and lateral for further evaluation, if clinically feasible. 3. Cardiomediastinal silhouette is normal. Central pulmonary venous crowding. 4. No acute bony abnormalities. Signed by: Dr. Della Lopez M.D. on 09/11/2017 3:59 PM Dictated By: DELLA LOPEZ MD Transcribed By: EDDIE on 09/11/172 COPY TO: SANDRA CLAYTON MD
[2017-09-26] MEDS ORDERED: ONDANSETRON HCL INJ 2 MG/ML VIAL IV STA (17:23)
[2017-09-26] MEDS ORDERED: SODIUM CHLORIDE 0.9% 1000ML 1,000 ML IV STA (17:23)
[2017-09-26] MEDS ORDERED: SODIUM CHLORIDE 0.9% 1000ML 1,000 ML IV SCH ×2 (17:30→19:02)
[2017-09-26 18:15] LABS: BASOPHILS # (AUTO) 0.1 (0.0-0.1); BASOPHILS % 0.7 % (0.0-1.0); EOSINOPHILS # (AUTO) 0.2 (0.0-0.4); EOSINOPHILS % 0.9 % (0.0-6.0); HEMATOCRIT 36.1 % (34.2-44.1); HEMOGLOBIN 12.2 g/dL (12.0-16.0); LYMPHOCYTES # (AUTO) 0.6 (1.0-3.2); MEAN CORPUSCULAR HGB CONC 33.8 g/dL (31-35); MEAN CORPUSCULAR VOLUME 88.9 fL (81-99); MONOCYTES # (AUTO) 1.5 (0.2-0.8); MONOCYTES % 7.4 % (4.4-11.3); NEUTROPHILS # (AUTO) 17.3 (2.1-6.9); NEUTROPHILS % 87.4 % (38.7-80.0); PLATELET COUNT 430 x10e3/uL (140-360); RED BLOOD COUNT 4.06 x10e6/uL (3.6-5.1); RED CELL DISTRIBUTION WIDTH 13.3 % (11.7-14.4)
[2017-09-26 18:22] LABS: ALBUMIN/GLOBULIN RATIO 0.7 (0.8-2.0); ANION GAP 28.7 mmol/L (8-16); CALCIUM 9.5 mg/dL (8.4-10.2); CREATININE, SERUM 1.22 mg/dL (0.57-1.11)
[2017-09-26 18:28] LABS: POTASSIUM 2.7 mmol/L (3.5-5.1)
[2017-09-26 18:42] LABS: THYROID STIMULATING HORMONE 0.517 uIU/mL (0.350-4.940)
--- NOTE | 2017-09-26 18:57 | Diagnostic Imaging Report ---
EXAMINATION: CHEST SINGLE (PORTABLE) INDICATION: \S\SOB \[id number] \S\1748 \S\Y COMPARISON: Chest radiograph 09/12/2017 FINDINGS: AP view TUBES and LINES: None. LUNGS: Lungs are well inflated. Lungs are clear. Resolution of the left lower lobe consolidation. PLEURA: No pleural effusion or pneumothorax. HEART AND MEDIASTINUM: The cardiomediastinal silhouette is unremarkable.. BONES AND SOFT TISSUES: No acute osseous lesion. Soft tissues are unremarkable. UPPER ABDOMEN: No free air under the diaphragm. IMPRESSION: No acute cardiopulmonary abnormalities. Signed by: Dr. Vivian George M.D. on 09/26/2017 6:54 PM
[2017-09-26] MEDS ORDERED: DEXTROSE 5%/0.45% SOD CHL 1,000 ML IV SCH (19:02)
[2017-09-26] MEDS ORDERED: INSULIN DETEMIR 100 UNIT/ML PEN SQ PRN (19:15)
[2017-09-26] MEDS ORDERED: INSULIN REGULAR, HUMAN 3ML VL 100 UNIT in SODIUM CHLORIDE 0.9% 99 ML IV SCH ×2 (19:15)
[2017-09-26] MEDS ORDERED: POTASSIUM CHLORIDE 20MEQ/100ML 200 ML IV PRN (19:15)
[2017-09-26] MEDS ORDERED: MAGNESIUM SULF 1GRAM/DEXTROSE 100 ML IV PRN (19:15)
[2017-09-26] MEDS ORDERED: ONDANSETRON HCL INJ 2 MG/ML VIAL ONE (19:24)
[2017-09-26] MEDS ORDERED: ONDANSETRON HCL INJ 2 MG/ML VIAL IV PRN (19:30)
[2017-09-26] MEDS ORDERED: POTASSIUM CHLORIDE 20MEQ/15ML UDC PO ONE (20:00)
[2017-09-26] MEDS ORDERED: INSULIN REGULAR, HUMAN 3ML VL 300 UNIT in SODIUM CHLORIDE 0.45% 100 ML 300 ML IV SCH ×2 (22:14)
[2017-09-26 22:15] VITALS: BP 105/56
[2017-09-26] MEDS ORDERED: DEXTROSE 50% SYRINGE 50 ML IV PRN (22:15)
[2017-09-26] MEDS ORDERED: POTASSIUM CHLORIDE IV SCH (22:15)
[2017-09-26] MEDS ORDERED: SODIUM CHLORIDE 0.45% IV SCH (22:15)
[2017-09-26 22:16] VITALS: BP 107/66
[2017-09-26 22:19] LABS: COLOR,URINE YELLOW (YELLOW)
[2017-09-26 22:20] LABS: BILIRUBIN,URINE NEGATIVE (NEGATIVE); CLARITY,URINE CLEAR (CLEAR); KETONES,URINE 2+ (NEGATIVE); LEUKOCYTE ESTERASE ,URINE NEGATIVE (NEGATIVE); NITRITE,URINE NEGATIVE (NEGATIVE); PROTEIN,URINE DIPSTICK NEGATIVE (NEGATIVE); URINE UROBILINOGEN 0.2 mg/dL (0.2 - 1)
[2017-09-26 22:32] LABS: WBC,URINE (MAN) 0-5 /HPF (0-5)
[2017-09-26 22:33] LABS: EPITHELIAL CELLS,URINE FEW /LPF; RBC,URINE 0-5 /HPF (0-5)
[2017-09-26 23:05] VITALS: BP 108/64
[2017-09-26] MEDS ORDERED: POTASSIUM CHL 40 MEQ in SODIUM CHLORIDE 0.45% 1,000 ML IV ONE (23:30)
[2017-09-27] VITALS (31 sets, daily range): BP systolic 103–140; BP diastolic 56–100
[2017-09-27] MEDS: POTASSIUM CHL 40 MEQ in SODIUM CHLORIDE 0.45% 1,000 ML IV SCH ×3 (05:26→23:25)
[2017-09-27 05:33] LABS: BASOPHILS # (AUTO) 0.1 (0.0-0.1); BASOPHILS % 0.5 % (0.0-1.0); EOSINOPHILS # (AUTO) 0.8 (0.0-0.4); HEMATOCRIT 31.8 % (34.2-44.1); HEMOGLOBIN 10.8 g/dL (12.0-16.0); LYMPHOCYTES # (AUTO) 0.8 (1.0-3.2); LYMPHOCYTES % 3.8 % (18.0-39.1); MEAN CORPUSCULAR HEMOGLOBIN 29.7 pg (28-32); MEAN CORPUSCULAR VOLUME 87.4 fL (81-99); MONOCYTES # (AUTO) 1.8 (0.2-0.8); MONOCYTES % 8.8 % (4.4-11.3); NEUTROPHILS # (AUTO) 16.5 (2.1-6.9); NEUTROPHILS % 82.3 % (38.7-80.0); PLATELET COUNT 372 x10e3/uL (140-360); RED BLOOD COUNT 3.64 x10e6/uL (3.6-5.1); RED CELL DISTRIBUTION WIDTH 13.2 % (11.7-14.4)
[2017-09-27] MEDS ORDERED: ALPRAZOLAM 0.5 MG TAB PO PRN (06:45)
[2017-09-27 07:29] LABS: ALANINE AMINOTRANSFERASE 7 IU/L (0-55); ALBUMIN 2.5 g/dL (3.5-5.0); ALBUMIN/GLOBULIN RATIO 0.7 (0.8-2.0); ALKALINE PHOSPHATASE 94 IU/L (40-150); ANION GAP 9.4 mmol/L (8-16); BLOOD UREA NITROGEN 6 mg/dL (7-26); BUN/CREATININE RATIO 8 (6-25); CARBON DIOXIDE 25 mmol/L (22-29); CHLORIDE 111 mmol/L (98-107); CREATININE, SERUM 0.73 mg/dL (0.57-1.11); EST GLOMERULAR FILTRATION RATE > 60 ML/MIN (60-); GLUCOSE 138 mg/dL (74-118); SODIUM 143 mmol/L (136-145)
[2017-09-27 07:34] LABS: MAGNESIUM 1.1 MG/DL (1.3-2.1); POTASSIUM 2.4 mmol/L (3.5-5.1)
[2017-09-27] MEDS ORDERED: POTASSIUM CHLORIDE 20 MEQ TAB CR PO STA (07:40)
[2017-09-27] MEDS ORDERED: MAGNESIUM SULFATE 2GM/50ML 50 ML IV ONE (07:45)
[2017-09-27] MEDS ORDERED: POTASSIUM CHLORIDE 20MEQ/100ML 200 ML IV ONE (07:45)
--- NOTE | 2017-09-27 08:01 | History and Physical ---
PRIMARY CARE PHYSICIAN: Unknown. CHIEF COMPLAINT: Elevated blood glucose. HISTORY OF PRESENT ILLNESS: This is a 22-year-old woman recently admitted with DKA, now representing with DKA. The patient states her sugar was uncontrolled. She took extra insulin, but could not control her glucose. Denies any abdominal pain. Has mild nausea, but no vomiting. Denies any diarrhea. PAST MEDICAL HISTORY: Diabetes mellitus, type 1, hypertension, acute delirium, anxiety disorder, dehydration, severe metabolic acidosis, culture-negative sepsis, acute kidney injury, urinary tract infection, lactic acidemia, hypernatremia, hypertriglyceridemia. PAST SURGICAL HISTORY: None. ALLERGIES: PER ELECTRONIC MEDICAL RECORD. FAMILY HISTORY: Unknown. SOCIAL HISTORY: The patient lives with her friend by the name of Kiara Parker who takes care of her. The patient's mother about 3 years ago. Father is not involved in her care. MEDICATIONS: Per electronic medical records. REVIEW OF SYSTEMS: Denies any chest pain or shortness of breath. PHYSICAL EXAMINATION VITAL SIGNS: Reviewed. GENERAL: A tired-appearing woman resting in bed. HEENT: Anicteric. Pupils respond to light. No oral lesions. CARDIOVASCULAR: Normal S1 and S2. LUNGS: Moderate breath sounds. ABDOMEN: Soft, nontender and nondistended. EXTREMITIES: No edema or calf tenderness. NEUROLOGIC: Alert, awake and appropriate. LABS: Reviewed. MEDICATIONS: Reviewed. ASSESSMENT AND PLAN: This is a 22-year-old woman with: 1. Diabetic ketoacidosis: Continue insulin regimen and fluids. 2. Diabetes mellitus, type 1: Will obtain hemoglobin A1c and lipid panel. 3. Hypokalemia: Replace and recheck. 4. Medication noncompliance: Counseling required. 5. Anxiety disorder: Treat with alprazolam as needed. 6. Prophylaxis: Will use sequential compression devices and Pepcid. 7. Disposition: Monitor closely. Continue insulin, fluids and needs continued education. Use diabetic diet. The patient admits to not having a diabetic diet at home. Critical care time more than 35 minutes. Job#: [id number] [place]
[2017-09-27] MEDS: FENOFIBRATE 145 MG TAB PO SCH (11:41)
[2017-09-27] MEDS: FAMOTIDINE 20 MG TAB PO SCH ×2 (11:41→17:35)
[2017-09-27 13:05] LABS: ANION GAP 11.4 mmol/L (8-16); BLOOD UREA NITROGEN 5 mg/dL (7-26); BUN/CREATININE RATIO 7 (6-25); CALCIUM 8.8 mg/dL (8.4-10.2); CARBON DIOXIDE 25 mmol/L (22-29); CHLORIDE 111 mmol/L (98-107); CREATININE, SERUM 0.71 mg/dL (0.57-1.11); EST GLOMERULAR FILTRATION RATE > 60 ML/MIN (60-); GLUCOSE 241 mg/dL (74-118); POTASSIUM 3.4 mmol/L (3.5-5.1); SODIUM 144 mmol/L (136-145)
[2017-09-27] MEDS ORDERED: INSULIN REGULAR, HUMAN 3ML VL 300 UNIT in SODIUM CHLORIDE 0.45% 100 ML 300 ML IV SCH ×2 (13:39)
[2017-09-27] MEDS ORDERED: DEXTROSE 50% SYRINGE 50 ML IV PRN (13:45)
[2017-09-27] MEDS ORDERED: INSULIN REGULAR, HUMAN 3ML VL 100 UNIT in SODIUM CHLORIDE 0.45% 100 ML 100 ML IV SCH ×2 (13:45)
[2017-09-27] MEDS ORDERED: POTASSIUM CHLORIDE 20 MEQ TAB CR PO ONE (14:00)
[2017-09-27] MEDS: METOPROLOL TARTRATE 25 MG TAB PO SCH ×2 (14:15→22:30)
[2017-09-27 14:26] LABS: FREE T4 (FREE THYROXINE) 1.08 ng/dL (0.9-1.8); THYROID STIMULATING HORMONE 0.664 uIU/mL (0.350-4.940)
--- NOTE | 2017-09-27 15:31 | Consultation ---
DATE OF CONSULTATION: September 27, 2017 ENDOCRINE CONSULTATION ATTENDING PHYSICIAN: Dr. Samuel Campos Thank you very much for referring this patient. This is a 22-year-old lady who is known to me from her previous hospital admission a few weeks back. Patient is a known case of type-1 diabetes mellitus. In the last hospital admission, the patient had severe ketoacidosis, and she was put on a combination of Levemir and Humalog insulin. This time, the patient comes back to the hospital with history of nausea and vomiting. At the time of admission, her blood sugar was 694, anion gap was 28.7, and the potassium was 2.7. Patient was admitted to the hospital for further evaluation and management. Patient says she is taking Levemir insulin 10 to 12 twice a day and Humalog 10 to 15 with each meal depending upon the blood sugar. I am really doubting about the compliance as far as taking the insulin is concerned at this time. Patient lives with some friends. She has also a history of multiple complications from diabetes including diabetic sensorimotor neuropathy. PHYSICAL EXAMINATION GENERAL: Today, the patient is alert and awake, a little bit apprehensive. She is slightly dehydrated. VITALS: Heart rate is around 100. Blood pressure is 120/76 mmHg. HEENT: Essentially unremarkable. Thyroid is palpable. Clinically, she is near euthyroid. CHEST: Bilateral vesicular breathing. She has mild bronchospasm. First and 2nd heart sounds. There is no 3rd or 4th heart sound. Ejection systolic murmur grade 2/6. CLINICAL IMPRESSION: Diabetes mellitus, type 1. Recurrent diabetic ketoacidosis. The plan at this time is to advance her diet, monitor her blood sugars closely and start her on long-acting insulin Levemir twice a day. Thanks for referring this patient. I have discussed the condition in detail with the patient and her sister who was at the bedside. Job#: [id number] SHARONA VASQUEZ
[2017-09-27] MEDS: INSULIN DETEMIR 100 UNIT/ML PEN SQ SCH (17:36)
[2017-09-28] VITALS: BP 126/90
[2017-09-28] MEDS: METOPROLOL TARTRATE 25 MG TAB PO SCH ×3 (00:52→15:25)
[2017-09-28 04:00] VITALS: BP 125/86
[2017-09-28 06:43] LABS: BASOPHILS # (AUTO) 0.1 (0.0-0.1); BASOPHILS % 0.4 % (0.0-1.0); EOSINOPHILS # (AUTO) 0.5 (0.0-0.4); HEMATOCRIT 32.3 % (34.2-44.1); LYMPHOCYTES # (AUTO) 0.5 (1.0-3.2); LYMPHOCYTES % 3.5 % (18.0-39.1); MEAN CORPUSCULAR HGB CONC 34.1 g/dL (31-35); MONOCYTES # (AUTO) 1.5 (0.2-0.8); MONOCYTES % 10.9 % (4.4-11.3); NEUTROPHILS # (AUTO) 10.9 (2.1-6.9); NEUTROPHILS % 80.4 % (38.7-80.0); PLATELET COUNT 332 x10e3/uL (140-360); RED BLOOD COUNT 3.67 x10e6/uL (3.6-5.1); RED CELL DISTRIBUTION WIDTH 13.7 % (11.7-14.4)
[2017-09-28 06:52] LABS: ALANINE AMINOTRANSFERASE 8 IU/L (0-55); ALBUMIN 2.5 g/dL (3.5-5.0); ALBUMIN/GLOBULIN RATIO 0.7 (0.8-2.0); ALKALINE PHOSPHATASE 108 IU/L (40-150); ANION GAP 11.6 mmol/L (8-16); BLOOD UREA NITROGEN < 5 mg/dL (7-26); CALCIUM 9.7 mg/dL (8.4-10.2); CARBON DIOXIDE 25 mmol/L (22-29); CHLORIDE 116 mmol/L (98-107); CREATININE, SERUM 0.63 mg/dL (0.57-1.11); EST GLOMERULAR FILTRATION RATE > 60 ML/MIN (60-); GLUCOSE 177 mg/dL (74-118); MAGNESIUM 1.6 MG/DL (1.3-2.1); POTASSIUM 3.6 mmol/L (3.5-5.1); SODIUM 149 mmol/L (136-145)
[2017-09-28 06:53] LABS: BUN/CREATININE RATIO 8 (6-25)
[2017-09-28] MEDS: POTASSIUM CHL 40 MEQ in SODIUM CHLORIDE 0.45% 1,000 ML IV SCH (07:00)
[2017-09-28 08:00] VITALS: BP 126/89
--- NOTE | 2017-09-28 08:12 | Progress Note ---
DATE: September 28, 2017 TIME: 7:30 a.m. OVERNIGHT: Feeling better. REVIEW OF SYSTEMS: Denies any dizziness. VITAL SIGNS: Reviewed. PHYSICAL EXAMINATION GENERAL: A tired-appearing woman resting in bed. HEENT: Anicteric. CARDIOVASCULAR: Normal S1 and S2. LUNGS: Moderate breath sounds. ABDOMEN: Soft, nontender and nondistended. EXTREMITIES: No edema. SKIN: Dry. PSYCHIATRIC: Flat affect. LABS: Reviewed. MEDICATIONS: Reviewed. ASSESSMENT: This is a 22-year-old woman. 1. Diabetic ketoacidosis. 2. Diabetes mellitus, type 1. 3. Medication noncompliance. 4. Hypokalemia. 5. Anxiety disorder. 6. Hypokalemia. PLAN 1. Continue diabetic diet. 2. Continue insulin regimen. 3. Hemoglobin A1c is 12.6. LDL reviewed from previous admission. 4. Continue Pepcid and fenofibrate. 5. Continue alprazolam. 6. Discharge planning. Job#: [id number]
[2017-09-28] MEDS: INSULIN DETEMIR 100 UNIT/ML PEN SQ SCH (09:00)
[2017-09-28 09:42] LABS: BAND NEUTROPHILS % (MANUAL) 7 %; EOSINOPHILS % (MANUAL) 2 % (0-7); LYMPHOCYTES % (MANUAL) 1 % (19-48); MONOCYTES % (MANUAL) 6 % (3.4-9.0); NEUTROPHILS % (MANUAL) 83 % (40-74)
[2017-09-28 09:45] LABS: ANISOCYTOSIS SLIGHT; PLATELET ESTIMATE ADEQUATE; PLATELET MORPHOLOGY COMMENT FEW LARGE; RBC MORPHOLOGY COMMENT NORMAL
[2017-09-28] MEDS: FAMOTIDINE 20 MG TAB PO SCH (09:47)
[2017-09-28] MEDS: FENOFIBRATE 145 MG TAB PO SCH (09:47)
[2017-09-28] MEDS ORDERED: INSULIN LISPRO 100 UNIT/1 ML 3ML VIAL SQ ONE ×2 (12:30→14:15)
[2017-09-28] MEDS ORDERED: DEXTROSE 50% SYRINGE 50 ML IV PRN (14:00)
[2017-09-28 15:23] VITALS: BP 119/86
[2017-09-28] MEDS ORDERED: INSULIN REGULAR, HUMAN 100 UNIT/1 ML 3ML VIAL SQ SCH (16:30)
== END 2017-09-28 15:29 | disposition home or self-care (01) | DRG 639 ==
LOC: ER 16:40 → ERHOLD 19:44 → ICU 21:21 → IMCU 09-27 20:28
PROVIDERS: ADMIT Internal Medicine; ATTEND Internal Medicine
DX: E10.10 Type 1 diabetes mellitus with ketoacidosis without coma (principal); Z79.4 Long term (current) use of insulin; I10 Essential (primary) hypertension; E87.6 Hypokalemia; Z91.14 Patient's other noncompliance with medication regimen; J98.01 Acute bronchospasm
CPT/HCPCS: 36415; 36600; 71045; 80048; 80053; 81001; 82948; 83036; 83735; 84439; 84443; 85025; 99284; J2405; J3480; J7030; J7050